=== PATIENT | male | born 1950 | race Caucasian/White ===

== ENCOUNTER 2018-04-01 05:48 | Inpatient (IN) ==
[2018-04-01 07:04] LABS: Basophils % 0.8 % (0.0-0.8); Eosinophils # 0.2 10*3/uL (0.0-0.87); Eosinophils % 3.1 % (0.00-10.9); Hematocrit 40.7 VOL% (42.0-52.0); Hemoglobin 13.4 GM/DL (14.0-18.0); Immature Granulocytes % 0.4 %; Immature Granulocytes Absolute 0.02 #; Lymphocytes # 1.3 10*3/uL (1.4-4.0); Lymphocytes % 24.4 % (21.2-54.2); Mean Corpuscular HGB Conc 32.9 GM/DL (32-36); Mean Corpuscular Hemoglobin 29 PG (27-34); Mean Corpuscular Volume 88.3 FL (87-102); Mean Platelet Volume 12.5 FL (9.6-12.0); Monocytes # 0.6 10*3/uL (0.11-0.8); Monocytes % 11.5 % (1.7-12.7); Neutrophils # 3.1 10*3/uL (1.4-7.4); Neutrophils % 59.8 % (38.7-73.9); Red Blood Count 4.61 MC/CUMM (3.8-5.5); Red Cell Distribution Width 16.9 % (9.3-17.3); White Blood Count 5.1 T/CUMM (4-12)
[2018-04-01 07:06] LABS: Platelet Count 95 T/CUMM (130-400)
[2018-04-01 07:17] LABS: Osmolality,Calculated 286.3 MOS/KG (273-304); Potassium 4.1 MMOL/L (3.5-5.1)
[2018-04-01 07:21] LABS: Anisocytosis 1+; Platelet Estimate Decreased
[2018-04-01 07:22] LABS: Poikilocytosis 1+
[2018-04-01] MEDS ORDERED: MIDAZOLAM 2 MG/2 ML VIAL ONE ×2 (07:52→08:38)
[2018-04-01] MEDS ORDERED: LIDOCAINE 1% 20 ML VIAL ONE (07:52)
[2018-04-01] MEDS ORDERED: fentaNYL 100 MCG/2 ML VIAL ONE ×2 (07:52→08:38)
[2018-04-01] MEDS ORDERED: HEPARIN/NACL 0.9% 2 UNITS/ML 500 ML IV ONE (07:52)
[2018-04-01] MEDS ORDERED: ISOPROTERENOL 1 MG/5 ML VIAL IV ONE (08:14)
[2018-04-01 09:08] LABS: INR 3.8; PT Patient Result 38.1 SECS; Partial Thromboplastin Time 47.8 SECS (0-40)
[2018-04-01] MEDS ORDERED: PHYTONADIONE 10 MG/1 ML AMP ONE (09:10)
[2018-04-01] MEDS ORDERED: SODIUM CHLORIDE 0.9% 1,000 ML IV PRN (09:24)
[2018-04-01] MEDS ORDERED: MORPHINE 4 MG/1 ML VIAL IV PRN (09:46)
[2018-04-01] MEDS ORDERED: oxyCODONE/ACETAMINOPHEN 5-325 MG TABLET PO PRN (09:46)
[2018-04-01] MEDS ORDERED: ONDANSETRON 4 MG/2 ML VIAL IV PRN (09:46)
[2018-04-01] MEDS ORDERED: ZALEPLON 5 MG CAPSULE PO PRN (09:46)
[2018-04-01] MEDS ORDERED: ACETAMINOPHEN 325 MG TABLET PO PRN (09:46)
[2018-04-01] MEDS ORDERED: DEXTROSE 50% 25 GM/50 ML VIAL IV PRN ×2 (09:49→12:26)
[2018-04-01] MEDS ORDERED: GLUCAGON 1 MG VIAL IM PRN ×2 (09:49→12:26)
[2018-04-01 11:43] LABS: Partial Thromboplastin Time 37.8 SECS (0-40)
[2018-04-01 11:48] LABS: INR 2.2
[2018-04-01 11:49] LABS: PT Patient Result 22.4 SECS
[2018-04-01] MEDS: SOTALOL 80 MG TABLET PO SCH ×2 (12:40→21:14)
[2018-04-01] MEDS: metFORMIN 500 MG TABLET PO SCH (16:51)
[2018-04-01] MEDS ORDERED: WARFARIN 5 MG TABLET PO SCH (18:00)
[2018-04-01] MEDS ORDERED: diphenhydrAMINE CAP 25 MG CAPSULE PO PRN (18:34)
[2018-04-01] MEDS ORDERED: MAGNESIUM HYDROXIDE SUSP 30 ML UDCUP PO PRN (18:35)
[2018-04-01] MEDS: MAGNESIUM CHLORIDE 64 MG TABLET PO SCH (21:14)
[2018-04-01] MEDS: OMEGA 3 ACID ETHYL ESTERS 1 GM CAPSULE PO SCH (21:14)
[2018-04-01] MEDS: ASCORBIC ACID 500 MG TABLET PO SCH (21:14)
[2018-04-02 04:25] LABS: Basophils % 0.4 % (0.0-0.8); Eosinophils # 0.2 10*3/uL (0.0-0.87); Eosinophils % 4.6 % (0.00-10.9); Hematocrit 37.8 VOL% (42.0-52.0); Hemoglobin 12.6 GM/DL (14.0-18.0); Immature Granulocytes % 0.4 %; Immature Granulocytes Absolute 0.02 #; Lymphocytes # 1.3 10*3/uL (1.4-4.0); Lymphocytes % 25.3 % (21.2-54.2); Mean Corpuscular HGB Conc 33.3 GM/DL (32-36); Mean Corpuscular Hemoglobin 29 PG (27-34); Mean Corpuscular Volume 87.1 FL (87-102); Mean Platelet Volume 11.2 FL (9.6-12.0); Monocytes # 0.6 10*3/uL (0.11-0.8); Neutrophils % 57.3 % (38.7-73.9); Red Blood Count 4.34 MC/CUMM (3.8-5.5); Red Cell Distribution Width 16.5 % (9.3-17.3); White Blood Count 5.2 T/CUMM (4-12)
[2018-04-02 04:27] LABS: Platelet Count 87 T/CUMM (130-400)
[2018-04-02 04:38] LABS: INR 1.5; PT Patient Result 15.4 SECS
[2018-04-02 04:47] LABS: Platelet Estimate Decreased
[2018-04-02 04:48] LABS: Ovalocytes 1+
[2018-04-02 05:08] LABS: Calcium 9.1 MG/DL (8.5-10.1); Osmolality,Calculated 278.7 MOS/KG (273-304); Potassium 4.2 MMOL/L (3.5-5.1)
[2018-04-02] MEDS: SOTALOL 80 MG TABLET PO SCH ×2 (09:41→21:13)
[2018-04-02] MEDS: ASCORBIC ACID 500 MG TABLET PO SCH ×2 (09:41→21:12)
[2018-04-02] MEDS: FUROSEMIDE 20 MG TABLET PO SCH (09:41)
[2018-04-02] MEDS: GLIMEPIRIDE 4 MG TABLET PO SCH (09:41)
[2018-04-02] MEDS: ASPIRIN EC 81 MG TABLET PO SCH (09:42)
[2018-04-02] MEDS: metFORMIN 500 MG TABLET PO SCH ×2 (09:42→17:25)
[2018-04-02] MEDS: LISINOPRIL 20 MG TABLET PO SCH (09:42)
[2018-04-02] MEDS: ENOXAPARIN 100 MG/ML SYRINGE SUBCUT SCH ×2 (11:52→23:01)
[2018-04-02] MEDS ORDERED: WARFARIN 7.5 MG TABLET PO ONE (18:00)
[2018-04-02] MEDS: OMEGA 3 ACID ETHYL ESTERS 1 GM CAPSULE PO SCH (21:12)
[2018-04-02] MEDS: MAGNESIUM CHLORIDE 64 MG TABLET PO SCH (21:13)
[2018-04-03 04:30] LABS: Basophils % 0.7 % (0.0-0.8); Eosinophils # 0.2 10*3/uL (0.0-0.87); Eosinophils % 4.3 % (0.00-10.9); Hematocrit 36.8 VOL% (42.0-52.0); Hemoglobin 12.1 GM/DL (14.0-18.0); Immature Granulocytes % 0.2 %; Immature Granulocytes Absolute 0.01 #; Lymphocytes # 1.7 10*3/uL (1.4-4.0); Mean Corpuscular HGB Conc 32.9 GM/DL (32-36); Mean Corpuscular Hemoglobin 28 PG (27-34); Mean Corpuscular Volume 86.4 FL (87-102); Mean Platelet Volume 11.2 FL (9.6-12.0); Monocytes # 0.6 10*3/uL (0.11-0.8); Neutrophils # 1.7 10*3/uL (1.4-7.4); Neutrophils % 40.8 % (38.7-73.9); Platelet Count 94 T/CUMM (130-400); Red Blood Count 4.26 MC/CUMM (3.8-5.5); Red Cell Distribution Width 16.5 % (9.3-17.3); White Blood Count 4.2 T/CUMM (4-12)
[2018-04-03 05:04] LABS: Osmolality,Calculated 279.5 MOS/KG (273-304); Potassium 4.1 MMOL/L (3.5-5.1)
[2018-04-03 05:07] LABS: Hypochromasia 1+; Ovalocytes Slight; Platelet Estimate Decreased
[2018-04-03] MEDS: metFORMIN 500 MG TABLET PO SCH (08:31)
[2018-04-03] MEDS: SOTALOL 80 MG TABLET PO SCH (08:31)
[2018-04-03] MEDS: ASCORBIC ACID 500 MG TABLET PO SCH (08:31)
[2018-04-03] MEDS: LISINOPRIL 20 MG TABLET PO SCH (08:32)
[2018-04-03] MEDS: ASPIRIN EC 81 MG TABLET PO SCH (08:32)
[2018-04-03] MEDS: GLIMEPIRIDE 4 MG TABLET PO SCH (08:32)
[2018-04-03] MEDS: FUROSEMIDE 20 MG TABLET PO SCH (08:32)
[2018-04-03 10:12] LABS: INR 1.3; PT Patient Result 13.5 SECS
[2018-04-03 10:51] LABS: Basophils % 0.5 % (0.0-0.8); Eosinophils # 0.2 10*3/uL (0.0-0.87); Eosinophils % 3.8 % (0.00-10.9); Hematocrit 37.3 VOL% (42.0-52.0); Hemoglobin 12.1 GM/DL (14.0-18.0); Immature Granulocytes % 0.3 %; Immature Granulocytes Absolute 0.01 #; Lymphocytes # 1.2 10*3/uL (1.4-4.0); Lymphocytes % 30.5 % (21.2-54.2); Mean Corpuscular HGB Conc 32.4 GM/DL (32-36); Mean Corpuscular Hemoglobin 29 PG (27-34); Mean Corpuscular Volume 89.2 FL (87-102); Mean Platelet Volume 12.7 FL (9.6-12.0); Monocytes # 0.6 10*3/uL (0.11-0.8); Neutrophils % 49.9 % (38.7-73.9); Red Blood Count 4.18 MC/CUMM (3.8-5.5); Red Cell Distribution Width 16.5 % (9.3-17.3)
[2018-04-03 10:57] LABS: Calcium 8.7 MG/DL (8.5-10.1); Osmolality,Calculated 283.5 MOS/KG (273-304); Potassium 4.6 MMOL/L (3.5-5.1)
[2018-04-03 11:16] LABS: Platelet Count 89 T/CUMM (130-400)
[2018-04-03 11:23] VITALS: BP 121/98
[2018-04-03 11:23] LABS: Anisocytosis 1+; Macrocytosis Slight; Platelet Estimate Decreased
[2018-04-03] MEDS ORDERED: WARFARIN 3 MG TABLET PO SCH (18:00)
== END 2018-04-03 13:30 | disposition home or self-care (01) | DRG 274 ==
LOC: N.CL 05:48 → N.2W 13:49 → N.TELES 15:35
PROVIDERS: ADMIT Internal Medicine Clinical Cardiac Electrophysiology; ATTEND Internal Medicine Clinical Cardiac Electrophysiology

== ENCOUNTER 2018-09-27 12:29 | Inpatient (IN) ==
[2018-09-27 13:05] LABS: Basophils % 0.3 % (0.0-0.8); Eosinophils # 0.1 10*3/uL (0.0-0.87); Eosinophils % 1.4 % (0.00-10.9); Hematocrit 33.4 VOL% (42.0-52.0); Hemoglobin 11.6 GM/DL (14.0-18.0); Immature Granulocytes % 0.4 %; Immature Granulocytes Absolute 0.03 #; Lymphocytes # 0.9 10*3/uL (1.4-4.0); Lymphocytes % 12.5 % (21.2-54.2); Mean Corpuscular HGB Conc 34.7 GM/DL (32-36); Mean Corpuscular Hemoglobin 36 PG (27-34); Mean Corpuscular Volume 104.4 FL (87-102); Mean Platelet Volume 11.8 FL (9.6-12.0); Monocytes # 0.2 10*3/uL (0.11-0.8); Monocytes % 3.3 % (1.7-12.7); NRBC # 0.02 10*3/uL; Neutrophils # 5.8 10*3/uL (1.4-7.4); Neutrophils % 82.1 % (38.7-73.9); Red Cell Distribution Width 19.9 % (9.3-17.3); White Blood Count 7.1 T/CUMM (4-12)
[2018-09-27 13:07] LABS: Platelet Count 82 T/CUMM (130-400)
[2018-09-27 13:16] LABS: INR 1.6; PT Patient Result 17.6 SECS; Partial Thromboplastin Time 31.7 SECS (0-40)
[2018-09-27 13:32] LABS: Albumin 3.9 G/DL (3.4-5.0); Bilirubin,Total 2.2 MG/DL (0.2-1.0); Calcium 8.9 MG/DL (8.5-10.1)
[2018-09-27] MEDS ORDERED: PANTOPRAZOLE 40 MG TABLET PO STA (13:39)
[2018-09-27] MEDS ORDERED: METOCLOPRAMIDE 10 MG TABLET PO STA (13:39)
[2018-09-27] MEDS ORDERED: ALUM/MAG/SIMETH/LIDO VISC 1:1 30 ML BOTTLE PO STA (13:39)
[2018-09-27] MEDS ORDERED: NITROGLYCERIN 2% OINT 1 INCH/GM PACK TOP STA (13:58)
[2018-09-27] MEDS ORDERED: ASPIRIN 325 MG TABLET PO STA (13:58)
[2018-09-27] MEDS ORDERED: BISACODYL 5 MG TABLET PO PRN (14:17)
[2018-09-27] MEDS ORDERED: ACETAMINOPHEN 325 MG TABLET PO PRN (14:17)
[2018-09-27] MEDS ORDERED: diphenhydrAMINE CAP 25 MG CAPSULE PO PRN (14:17)
[2018-09-27] MEDS ORDERED: ZALEPLON 5 MG CAPSULE PO PRN (14:17)
[2018-09-27] MEDS ORDERED: LACTULOSE 20 GM/30 ML UDCUP PO PRN (14:17)
[2018-09-27] MEDS ORDERED: ONDANSETRON 4 MG/2 ML VIAL IV PRN (14:17)
[2018-09-27] MEDS ORDERED: DOCUSATE SODIUM 100 MG CAPSULE PO PRN (14:17)
[2018-09-27] MEDS ORDERED: NITROGLYCERIN SL 0.4 MG TABLET SL PRN (14:20)
[2018-09-27 14:21] LABS: Troponin I 0.371 NG/ML (0.00-0.045)
[2018-09-27] MEDS ORDERED: GLUCAGON 1 MG VIAL IM PRN (15:04)
[2018-09-27] MEDS ORDERED: hydrALAZINE 20 MG/1 ML VIAL IV PRN (15:04)
[2018-09-27] MEDS ORDERED: DEXTROSE 50% 25 GM/50 ML SYRINGE IV PRN (15:04)
[2018-09-27] MEDS: ENOXAPARIN 40 MG/0.4 ML SYRINGE SUBCUT SCH (16:31)
[2018-09-27] MEDS: metFORMIN 500 MG TABLET PO SCH ×2 (16:31→16:55)
[2018-09-27] MEDS: SODIUM CHLORIDE 0.9% 1,000 ML IV SCH (16:32)
[2018-09-27] MEDS: INSULIN REGULAR 100 UNIT/ML SUBCUT SCH ×2 (16:54→20:56)
[2018-09-27] MEDS: ASCORBIC ACID 500 MG TABLET PO SCH (20:51)
[2018-09-27] MEDS: OMEGA 3 ACID ETHYL ESTERS 1 GM CAPSULE PO SCH (20:52)
[2018-09-27] MEDS: MAGNESIUM CHLORIDE 64 MG TABLET PO SCH (20:52)
[2018-09-27] MEDS: tiZANidine 4 MG TABLET PO SCH (20:55)
[2018-09-28 05:15] LABS: Basophils % 0.6 % (0.0-0.8); Eosinophils # 0.1 10*3/uL (0.0-0.87); Eosinophils % 3.5 % (0.00-10.9); Hematocrit 26.3 VOL% (42.0-52.0); Hemoglobin 9.1 GM/DL (14.0-18.0); Immature Granulocytes % 0.6 %; Immature Granulocytes Absolute 0.02 #; Lymphocytes % 27.4 % (21.2-54.2); Mean Corpuscular HGB Conc 34.6 GM/DL (32-36); Mean Corpuscular Hemoglobin 36 PG (27-34); Mean Corpuscular Volume 104.4 FL (87-102); Mean Platelet Volume 12.4 FL (9.6-12.0); Monocytes # 0.2 10*3/uL (0.11-0.8); Monocytes % 4.3 % (1.7-12.7); Neutrophils # 2.2 10*3/uL (1.4-7.4); Neutrophils % 63.6 % (38.7-73.9); Red Blood Count 2.52 MC/CUMM (3.8-5.5); Red Cell Distribution Width 19.9 % (9.3-17.3); White Blood Count 3.5 T/CUMM (4-12)
[2018-09-28] MEDS: ENOXAPARIN 40 MG/0.4 ML SYRINGE SUBCUT SCH ×2 (05:15→17:03)
[2018-09-28 05:24] LABS: Calcium 8.5 MG/DL (8.5-10.1); Osmolality,Calculated 281.4 MOS/KG (273-304); Potassium 4.2 MMOL/L (3.5-5.1)
[2018-09-28 05:30] LABS: Platelet Count 60 T/CUMM (130-400)
[2018-09-28 05:54] LABS: Hypochromasia 1+; Ovalocytes Slight; Platelet Estimate Decreased
[2018-09-28 05:55] LABS: Macrocytosis Slight
[2018-09-28] MEDS: INSULIN REGULAR 100 UNIT/ML SUBCUT SCH ×4 (07:29→21:45)
[2018-09-28] MEDS: metFORMIN 500 MG TABLET PO SCH ×2 (09:21→17:03)
[2018-09-28] MEDS: GLIMEPIRIDE 4 MG TABLET PO SCH (11:43)
[2018-09-28] MEDS: FUROSEMIDE 20 MG TABLET PO SCH (11:44)
[2018-09-28] MEDS: ATENOLOL 50 MG TABLET PO SCH (11:44)
[2018-09-28] MEDS: ASPIRIN EC 81 MG TABLET PO SCH (11:44)
[2018-09-28] MEDS: ASCORBIC ACID 500 MG TABLET PO SCH ×2 (11:44→21:38)
[2018-09-28] MEDS: LISINOPRIL 20 MG TABLET PO SCH (11:44)
[2018-09-28] MEDS: NITROGLYCERIN 2% OINT 1 INCH/GM PACK TOP SCH ×2 (12:27→17:04)
[2018-09-28] MEDS: SODIUM CHLORIDE 0.9% 1,000 ML IV SCH (14:52)
[2018-09-28] MEDS ORDERED: MAGNESIUM SULF RIDER 2 GM in PREMIX 1 EACH IV PRN (20:27)
[2018-09-28] MEDS ORDERED: diphenhydrAMINE CAP 25 MG CAPSULE PO ONE (20:27)
[2018-09-28] MEDS ORDERED: POTASSIUM CHLORIDE RIDER 10 MEQ in PREMIX 1 EACH IV PRN (20:27)
[2018-09-28] MEDS ORDERED: DIAZEPAM 5 MG TABLET PO ONE (20:27)
[2018-09-28] MEDS: tiZANidine 4 MG TABLET PO SCH (21:38)
[2018-09-28] MEDS: OMEGA 3 ACID ETHYL ESTERS 1 GM CAPSULE PO SCH (21:38)
[2018-09-28] MEDS: MAGNESIUM CHLORIDE 64 MG TABLET PO SCH (21:38)
[2018-09-29] MEDS: NITROGLYCERIN 2% OINT 1 INCH/GM PACK TOP SCH ×4 (00:26→18:04)
[2018-09-29 04:11] LABS: Basophils % 0.3 % (0.0-0.8); Eosinophils # 0.1 10*3/uL (0.0-0.87); Eosinophils % 4.1 % (0.00-10.9); Hematocrit 25.7 VOL% (42.0-52.0); Hemoglobin 8.8 GM/DL (14.0-18.0); Immature Granulocytes % 0.3 %; Immature Granulocytes Absolute 0.01 #; Lymphocytes # 1.1 10*3/uL (1.4-4.0); Lymphocytes % 36.4 % (21.2-54.2); Mean Corpuscular HGB Conc 34.2 GM/DL (32-36); Mean Corpuscular Hemoglobin 36 PG (27-34); Mean Platelet Volume 11.8 FL (9.6-12.0); Monocytes # 0.2 10*3/uL (0.11-0.8); Monocytes % 6.8 % (1.7-12.7); Neutrophils # 1.5 10*3/uL (1.4-7.4); Neutrophils % 52.1 % (38.7-73.9); Platelet Count 64 T/CUMM (130-400); Red Blood Count 2.47 MC/CUMM (3.8-5.5); Red Cell Distribution Width 19.8 % (9.3-17.3); White Blood Count 2.9 T/CUMM (4-12)
[2018-09-29 04:13] LABS: INR 1.4; PT Patient Result 14.9 SECS
[2018-09-29 04:25] LABS: Calcium 8.4 MG/DL (8.5-10.1); Osmolality,Calculated 281.5 MOS/KG (273-304)
[2018-09-29 04:51] LABS: Hypochromasia 1+; Macrocytosis Slight; Ovalocytes Slight; Platelet Estimate Decreased
[2018-09-29] MEDS: ASCORBIC ACID 500 MG TABLET PO SCH ×2 (09:51→21:19)
[2018-09-29] MEDS: ATENOLOL 50 MG TABLET PO SCH (09:51)
[2018-09-29] MEDS: LISINOPRIL 20 MG TABLET PO SCH (09:51)
[2018-09-29] MEDS: ASPIRIN EC 81 MG TABLET PO SCH (09:51)
[2018-09-29] MEDS: INSULIN REGULAR 100 UNIT/ML SUBCUT SCH ×4 (09:53→21:17)
[2018-09-29] MEDS: metFORMIN 500 MG TABLET PO SCH ×2 (09:53→17:22)
[2018-09-29] MEDS: GLIMEPIRIDE 4 MG TABLET PO SCH (10:08)
[2018-09-29] MEDS: FUROSEMIDE 20 MG TABLET PO SCH (10:10)
[2018-09-29] MEDS ORDERED: DIAZEPAM 5 MG TABLET ONE (12:20)
[2018-09-29] MEDS ORDERED: LIDOCAINE 1% 20 ML VIAL ONE (13:07)
[2018-09-29] MEDS ORDERED: HEPARIN/NACL 0.9% 2 UNITS/ML 1,000 ML IV ONE (13:07)
[2018-09-29] MEDS ORDERED: MIDAZOLAM 2 MG/2 ML VIAL ONE (13:33)
[2018-09-29] MEDS ORDERED: fentaNYL 100 MCG/2 ML VIAL ONE (13:33)
[2018-09-29] MEDS: SODIUM CHLORIDE 0.9% 1,000 ML IV SCH (15:43)
[2018-09-29] MEDS: OMEGA 3 ACID ETHYL ESTERS 1 GM CAPSULE PO SCH (21:17)
[2018-09-29] MEDS: tiZANidine 4 MG TABLET PO SCH (21:17)
[2018-09-29] MEDS: MAGNESIUM CHLORIDE 64 MG TABLET PO SCH (21:17)
[2018-09-30] MEDS: NITROGLYCERIN 2% OINT 1 INCH/GM PACK TOP SCH ×5 (00:15→23:45)
[2018-09-30 04:17] LABS: Basophils % 0.3 % (0.0-0.8); Eosinophils # 0.2 10*3/uL (0.0-0.87); Eosinophils % 4.1 % (0.00-10.9); Hematocrit 27.5 VOL% (42.0-52.0); Hemoglobin 9.5 GM/DL (14.0-18.0); Immature Granulocytes % 0.5 %; Immature Granulocytes Absolute 0.02 #; Lymphocytes # 1.3 10*3/uL (1.4-4.0); Lymphocytes % 35.1 % (21.2-54.2); Mean Corpuscular HGB Conc 34.5 GM/DL (32-36); Mean Corpuscular Hemoglobin 36 PG (27-34); Mean Corpuscular Volume 104.6 FL (87-102); Monocytes # 0.2 10*3/uL (0.11-0.8); Red Blood Count 2.63 MC/CUMM (3.8-5.5); Red Cell Distribution Width 19.5 % (9.3-17.3); White Blood Count 3.7 T/CUMM (4-12)
[2018-09-30 04:21] LABS: INR 1.2; PT Patient Result 13.2 SECS
[2018-09-30 04:28] LABS: Platelet Count 60 T/CUMM (130-400)
[2018-09-30 04:37] LABS: Hypochromasia 1+; Macrocytosis Slight; Ovalocytes Slight; Platelet Estimate Decreased
[2018-09-30 04:43] LABS: Calcium 8.6 MG/DL (8.5-10.1); Osmolality,Calculated 279.5 MOS/KG (273-304); Potassium 4.2 MMOL/L (3.5-5.1)
[2018-09-30] MEDS: INSULIN REGULAR 100 UNIT/ML SUBCUT SCH ×4 (08:44→21:29)
[2018-09-30] MEDS: ASCORBIC ACID 500 MG TABLET PO SCH ×2 (09:43→21:27)
[2018-09-30] MEDS: GLIMEPIRIDE 4 MG TABLET PO SCH (09:43)
[2018-09-30] MEDS: FUROSEMIDE 20 MG TABLET PO SCH (09:43)
[2018-09-30] MEDS: ASPIRIN EC 81 MG TABLET PO SCH (09:43)
[2018-09-30] MEDS: LISINOPRIL 20 MG TABLET PO SCH (09:43)
[2018-09-30] MEDS: ATENOLOL 50 MG TABLET PO SCH (09:43)
[2018-09-30] MEDS: metFORMIN 500 MG TABLET PO SCH ×3 (09:43→17:41)
[2018-09-30] MEDS: SODIUM CHLORIDE 0.9% 1,000 ML IV SCH ×2 (09:44→21:31)
[2018-09-30] MEDS: FLUTICASONE 50 MCG NASAL SPRAY 16 GM BOTTLE BOTH NARES SCH ×2 (12:25→21:29)
[2018-09-30] MEDS: FEXOFENADINE 180 MG TABLET PO SCH (12:25)
[2018-09-30] MEDS: FAMOTIDINE 20 MG TABLET PO SCH ×2 (12:25→21:27)
[2018-09-30] MEDS: MAGNESIUM CHLORIDE 64 MG TABLET PO SCH (21:27)
[2018-09-30] MEDS: OMEGA 3 ACID ETHYL ESTERS 1 GM CAPSULE PO SCH (21:27)
[2018-09-30] MEDS: tiZANidine 4 MG TABLET PO SCH (21:27)
[2018-10-01 03:42] LABS: Basophils % 0.4 % (0.0-0.8); Eosinophils # 0.2 10*3/uL (0.0-0.87); Eosinophils % 3.9 % (0.00-10.9); Hematocrit 27.8 VOL% (42.0-52.0); Hemoglobin 9.7 GM/DL (14.0-18.0); Immature Granulocytes % 0.9 %; Immature Granulocytes Absolute 0.04 #; Lymphocytes # 1.5 10*3/uL (1.4-4.0); Lymphocytes % 31.9 % (21.2-54.2); Mean Corpuscular HGB Conc 34.9 GM/DL (32-36); Mean Corpuscular Hemoglobin 36 PG (27-34); Mean Corpuscular Volume 103.3 FL (87-102); Mean Platelet Volume 13.5 FL (9.6-12.0); Monocytes # 0.3 10*3/uL (0.11-0.8); Monocytes % 6.8 % (1.7-12.7); NRBC # 0.02 10*3/uL; Neutrophils # 2.6 10*3/uL (1.4-7.4); Neutrophils % 56.1 % (38.7-73.9); Red Blood Count 2.69 MC/CUMM (3.8-5.5); Red Cell Distribution Width 19.8 % (9.3-17.3); White Blood Count 4.6 T/CUMM (4-12)
[2018-10-01 03:44] LABS: Platelet Count 83 T/CUMM (130-400)
[2018-10-01 03:58] LABS: Calcium 8.7 MG/DL (8.5-10.1); Osmolality,Calculated 279.7 MOS/KG (273-304); Potassium 4.3 MMOL/L (3.5-5.1)
[2018-10-01 04:00] LABS: INR 1.1; PT Patient Result 12.4 SECS
[2018-10-01 04:15] LABS: Hypochromasia 1+; Ovalocytes Slight; Platelet Estimate Decreased
[2018-10-01 04:16] LABS: Macrocytosis Slight
[2018-10-01] MEDS: NITROGLYCERIN 2% OINT 1 INCH/GM PACK TOP SCH ×3 (05:36→17:39)
[2018-10-01] MEDS: INSULIN REGULAR 100 UNIT/ML SUBCUT SCH ×4 (08:37→21:29)
[2018-10-01] MEDS: FEXOFENADINE 180 MG TABLET PO SCH (08:38)
[2018-10-01] MEDS: ASPIRIN EC 81 MG TABLET PO SCH (08:38)
[2018-10-01] MEDS: FUROSEMIDE 20 MG TABLET PO SCH (08:38)
[2018-10-01] MEDS: LISINOPRIL 20 MG TABLET PO SCH (08:38)
[2018-10-01] MEDS: FAMOTIDINE 20 MG TABLET PO SCH ×2 (08:38→21:29)
[2018-10-01] MEDS: ASCORBIC ACID 500 MG TABLET PO SCH ×2 (08:39→21:27)
[2018-10-01] MEDS: GLIMEPIRIDE 4 MG TABLET PO SCH (08:39)
[2018-10-01] MEDS: ATENOLOL 50 MG TABLET PO SCH (08:39)
[2018-10-01] MEDS: FLUTICASONE 50 MCG NASAL SPRAY 16 GM BOTTLE BOTH NARES SCH (08:45)
[2018-10-01] MEDS: metFORMIN 500 MG TABLET PO SCH ×2 (08:45→16:37)
[2018-10-01] MEDS ORDERED: MAGNESIUM SULF RIDER 2 GM in PREMIX 1 EACH IV PRN (10:30)
[2018-10-01] MEDS ORDERED: POTASSIUM CHLORIDE RIDER 10 MEQ in PREMIX 1 EACH IV PRN (10:30)
[2018-10-01] MEDS: CYANOCOBALAMIN 1000 MCG/1 ML VIAL IM SCH (12:56)
[2018-10-01] MEDS ORDERED: ALUM/MAG/SIMETH/LIDO VISC 1:1 30 ML BOTTLE PO PRN (16:09)
[2018-10-01] MEDS ORDERED: LORazepam 0.5 MG TABLET PO PRN (17:36)
[2018-10-01] MEDS ORDERED: WARFARIN 3 MG TABLET PO SCH (18:00)
[2018-10-01 18:51] LABS: HIT Interpretation Negative (Negative)
[2018-10-01] MEDS: OMEGA 3 ACID ETHYL ESTERS 1 GM CAPSULE PO SCH (21:27)
[2018-10-01] MEDS: MAGNESIUM CHLORIDE 64 MG TABLET PO SCH (21:28)
[2018-10-01] MEDS: tiZANidine 4 MG TABLET PO SCH (21:29)
[2018-10-02] MEDS: NITROGLYCERIN 2% OINT 1 INCH/GM PACK TOP SCH ×3 (00:09→13:18)
[2018-10-02 04:23] LABS: Basophils % 0.3 % (0.0-0.8); Eosinophils # 0.1 10*3/uL (0.0-0.87); Eosinophils % 3.7 % (0.00-10.9); Hematocrit 27.1 VOL% (42.0-52.0); Hemoglobin 9.4 GM/DL (14.0-18.0); Immature Granulocytes % 0.8 %; Immature Granulocytes Absolute 0.03 #; Lymphocytes # 1.4 10*3/uL (1.4-4.0); Lymphocytes % 36.3 % (21.2-54.2); Mean Corpuscular HGB Conc 34.7 GM/DL (32-36); Mean Corpuscular Hemoglobin 36 PG (27-34); Mean Corpuscular Volume 103.8 FL (87-102); Mean Platelet Volume 11.2 FL (9.6-12.0); Monocytes # 0.2 10*3/uL (0.11-0.8); Monocytes % 4.7 % (1.7-12.7); NRBC # 0.02 10*3/uL; Neutrophils # 2.1 10*3/uL (1.4-7.4); Neutrophils % 54.2 % (38.7-73.9); Red Blood Count 2.61 MC/CUMM (3.8-5.5); Red Cell Distribution Width 19.6 % (9.3-17.3); White Blood Count 3.8 T/CUMM (4-12)
[2018-10-02 04:32] LABS: Platelet Count 63 T/CUMM (130-400)
[2018-10-02 04:44] LABS: Calcium 8.7 MG/DL (8.5-10.1); Osmolality,Calculated 278.7 MOS/KG (273-304); Potassium 4.1 MMOL/L (3.5-5.1)
[2018-10-02] MEDS: SODIUM CHLORIDE 0.9% 1,000 ML IV SCH (06:36)
[2018-10-02] MEDS: INSULIN REGULAR 100 UNIT/ML SUBCUT SCH ×4 (08:04→21:07)
[2018-10-02] MEDS: CYANOCOBALAMIN 1000 MCG/1 ML VIAL IM SCH (09:30)
[2018-10-02] MEDS: ASCORBIC ACID 500 MG TABLET PO SCH ×2 (09:30→21:09)
[2018-10-02] MEDS: metFORMIN 500 MG TABLET PO SCH ×2 (09:30→16:16)
[2018-10-02] MEDS: ASPIRIN EC 81 MG TABLET PO SCH (09:31)
[2018-10-02] MEDS: FEXOFENADINE 180 MG TABLET PO SCH (09:31)
[2018-10-02] MEDS: FUROSEMIDE 20 MG TABLET PO SCH (09:31)
[2018-10-02] MEDS: GLIMEPIRIDE 4 MG TABLET PO SCH (09:31)
[2018-10-02] MEDS: ISOSORBIDE MONONITRATE 30 MG TABLET PO SCH (09:31)
[2018-10-02] MEDS: ATENOLOL 50 MG TABLET PO SCH (09:31)
[2018-10-02] MEDS: FAMOTIDINE 20 MG TABLET PO SCH ×2 (09:31→21:08)
[2018-10-02] MEDS: LISINOPRIL 20 MG TABLET PO SCH (09:31)
[2018-10-02] MEDS: FLUTICASONE 50 MCG NASAL SPRAY 16 GM BOTTLE BOTH NARES SCH (09:32)
[2018-10-02] MEDS ORDERED: diphenhydrAMINE CAP 25 MG CAPSULE PO ONE (10:30)
[2018-10-02] MEDS ORDERED: DIAZEPAM 5 MG TABLET PO ONE (10:30)
[2018-10-02] MEDS ORDERED: WARFARIN 3 MG TABLET PO SCH (18:00)
[2018-10-02] MEDS: MAGNESIUM CHLORIDE 64 MG TABLET PO SCH (21:08)
[2018-10-02] MEDS: OMEGA 3 ACID ETHYL ESTERS 1 GM CAPSULE PO SCH (21:09)
[2018-10-02] MEDS: tiZANidine 4 MG TABLET PO SCH (21:09)
[2018-10-03] MEDS: SODIUM CHLORIDE 0.9% 1,000 ML IV SCH (02:16)
[2018-10-03 05:16] LABS: Basophils % 0.4 % (0.0-0.8); Eosinophils # 0.1 10*3/uL (0.0-0.87); Eosinophils % 3.1 % (0.00-10.9); Hematocrit 26.8 VOL% (42.0-52.0); Hemoglobin 9.3 GM/DL (14.0-18.0); Immature Granulocytes Absolute 0.09 #; Lymphocytes # 1.2 10*3/uL (1.4-4.0); Lymphocytes % 27.4 % (21.2-54.2); Mean Corpuscular HGB Conc 34.7 GM/DL (32-36); Mean Corpuscular Hemoglobin 36 PG (27-34); Mean Corpuscular Volume 103.9 FL (87-102); Monocytes # 0.4 10*3/uL (0.11-0.8); Monocytes % 8.4 % (1.7-12.7); NRBC # 0.07 10*3/uL; Neutrophils # 2.7 10*3/uL (1.4-7.4); Neutrophils % 58.7 % (38.7-73.9); Platelet Count 69 T/CUMM (130-400); Red Blood Count 2.58 MC/CUMM (3.8-5.5); Red Cell Distribution Width 20.1 % (9.3-17.3); White Blood Count 4.5 T/CUMM (4-12)
[2018-10-03 05:17] LABS: INR 1.1
[2018-10-03 05:41] LABS: Calcium 8.8 MG/DL (8.5-10.1); Osmolality,Calculated 274.8 MOS/KG (273-304)
[2018-10-03 08:10] VITALS: BP 117/48
[2018-10-03] MEDS: LISINOPRIL 20 MG TABLET PO SCH (09:01)
[2018-10-03] MEDS: FUROSEMIDE 20 MG TABLET PO SCH (09:02)
[2018-10-03] MEDS: FAMOTIDINE 20 MG TABLET PO SCH (09:02)
[2018-10-03] MEDS: metFORMIN 500 MG TABLET PO SCH (09:02)
[2018-10-03] MEDS: INSULIN REGULAR 100 UNIT/ML SUBCUT SCH (09:02)
[2018-10-03] MEDS: GLIMEPIRIDE 4 MG TABLET PO SCH (09:02)
[2018-10-03] MEDS: ASPIRIN EC 81 MG TABLET PO SCH (09:02)
[2018-10-03] MEDS: ISOSORBIDE MONONITRATE 30 MG TABLET PO SCH (09:02)
[2018-10-03] MEDS: FEXOFENADINE 180 MG TABLET PO SCH (09:02)
[2018-10-03] MEDS: ATENOLOL 50 MG TABLET PO SCH (09:02)
[2018-10-03] MEDS: ASCORBIC ACID 500 MG TABLET PO SCH (09:02)
[2018-10-03] MEDS: FLUTICASONE 50 MCG NASAL SPRAY 16 GM BOTTLE BOTH NARES SCH (09:12)
[2018-10-03] MEDS: CYANOCOBALAMIN 1000 MCG/1 ML VIAL IM SCH (09:12)
== END 2018-10-03 10:48 | disposition home or self-care (01) | DRG 311 ==
LOC: N.ED 12:29 → N.EDINP 14:17 → N.TELES 15:26
PROVIDERS: ADMIT Internal Medicine Cardiovascular Disease; ATTEND Internal Medicine Cardiovascular Disease

== ENCOUNTER 2018-10-06 02:25 | Inpatient (IN) ==
[2018-10-06 04:27] LABS: Basophils % 0.4 % (0.0-0.8); Eosinophils # 0.1 10*3/uL (0.0-0.87); Eosinophils % 1.6 % (0.00-10.9); Hemoglobin 10.7 GM/DL (14.0-18.0); Immature Granulocytes % 1.6 %; Immature Granulocytes Absolute 0.09 #; Lymphocytes # 1.2 10*3/uL (1.4-4.0); Lymphocytes % 21.1 % (21.2-54.2); Mean Corpuscular HGB Conc 33.4 GM/DL (32-36); Mean Corpuscular Hemoglobin 36 PG (27-34); Mean Corpuscular Volume 108.5 FL (87-102); Mean Platelet Volume 13.6 FL (9.6-12.0); Monocytes # 0.5 10*3/uL (0.11-0.8); Monocytes % 9.1 % (1.7-12.7); NRBC # 0.06 10*3/uL; Neutrophils # 3.8 10*3/uL (1.4-7.4); Neutrophils % 66.2 % (38.7-73.9); Red Blood Count 2.95 MC/CUMM (3.8-5.5); Red Cell Distribution Width 20.7 % (9.3-17.3); White Blood Count 5.7 T/CUMM (4-12)
[2018-10-06 04:31] LABS: Platelet Count 60 T/CUMM (130-400)
[2018-10-06 04:39] LABS: Albumin 3.8 G/DL (3.4-5.0); Bilirubin,Total 0.8 MG/DL (0.2-1.0); Calcium 9.2 MG/DL (8.5-10.1); Osmolality,Calculated 288.3 MOS/KG (273-304); Potassium 4.2 MMOL/L (3.5-5.1); Total Protein 6.9 G/DL (6.4-8.3)
[2018-10-06 05:02] LABS: Hypochromasia 1+
[2018-10-06 05:03] LABS: Macrocytosis Slight; Platelet Estimate Decreased; Polychromasia Slight
[2018-10-06] MEDS ORDERED: NITROGLYCERIN 2% OINT 1 INCH/GM PACK TOP STA (05:10)
[2018-10-06 06:52] LABS: INR 1.3; PT Patient Result 14.2 SECS; Partial Thromboplastin Time 28.9 SECS (0-40)
[2018-10-06] MEDS ORDERED: NITROGLYCERIN SL 0.4 MG TABLET SL PRN (10:16)
[2018-10-06] MEDS: LISINOPRIL 20 MG TABLET PO SCH (11:14)
[2018-10-06] MEDS: RANOLAZINE 500 MG TABLET PO SCH ×2 (11:14→22:04)
[2018-10-06] MEDS: FEXOFENADINE 180 MG TABLET PO SCH (11:14)
[2018-10-06] MEDS: FAMOTIDINE 20 MG TABLET PO SCH ×2 (11:14→22:04)
[2018-10-06] MEDS: ISOSORBIDE MONONITRATE 30 MG TABLET PO SCH (11:15)
[2018-10-06] MEDS: CYANOCOBALAMIN 1000 MCG/1 ML VIAL IM SCH (11:15)
[2018-10-06] MEDS: ATENOLOL 50 MG TABLET PO SCH (11:15)
[2018-10-06] MEDS: GLIMEPIRIDE 4 MG TABLET PO SCH (11:15)
[2018-10-06] MEDS: FUROSEMIDE 20 MG TABLET PO SCH (11:15)
[2018-10-06] MEDS: FLUTICASONE 50 MCG NASAL SPRAY 16 GM BOTTLE BOTH NARES SCH (12:01)
[2018-10-06] MEDS: metFORMIN 500 MG TABLET PO SCH (17:55)
[2018-10-06] MEDS ORDERED: WARFARIN 3 MG TABLET PO SCH (18:00)
[2018-10-06] MEDS: ASCORBIC ACID 500 MG TABLET PO SCH (22:03)
[2018-10-06] MEDS: OMEGA 3 ACID ETHYL ESTERS 1 GM CAPSULE PO SCH (22:03)
[2018-10-06] MEDS: MAGNESIUM CHLORIDE 64 MG TABLET PO SCH (22:04)
[2018-10-06] MEDS: tiZANidine 4 MG TABLET PO SCH (22:04)
[2018-10-07 04:29] LABS: Basophils % 0.2 % (0.0-0.8); Eosinophils # 0.2 10*3/uL (0.0-0.87); Eosinophils % 3.6 % (0.00-10.9); Hematocrit 29.2 VOL% (42.0-52.0); Hemoglobin 9.7 GM/DL (14.0-18.0); Immature Granulocytes % 0.7 %; Immature Granulocytes Absolute 0.03 #; Lymphocytes # 1.3 10*3/uL (1.4-4.0); Mean Corpuscular HGB Conc 33.2 GM/DL (32-36); Mean Corpuscular Hemoglobin 35 PG (27-34); Mean Corpuscular Volume 106.6 FL (87-102); Mean Platelet Volume 11.7 FL (9.6-12.0); Monocytes # 0.5 10*3/uL (0.11-0.8); Monocytes % 12.1 % (1.7-12.7); NRBC # 0.04 10*3/uL; Neutrophils # 2.1 10*3/uL (1.4-7.4); Neutrophils % 51.4 % (38.7-73.9); Platelet Count 57 T/CUMM (130-400); Red Blood Count 2.74 MC/CUMM (3.8-5.5); Red Cell Distribution Width 19.9 % (9.3-17.3); White Blood Count 4.1 T/CUMM (4-12)
[2018-10-07 04:53] LABS: Eosinophils 4 % (0-10); Hypochromasia 1+; Lymphocytes 37 % (20-55); Platelet Estimate Decreased; Segmented Neutrophils 50 % (50-85); Total Cells Counted 100
[2018-10-07 04:54] LABS: Calcium 8.8 MG/DL (8.5-10.1); Macrocytosis Slight; Osmolality,Calculated 281.5 MOS/KG (273-304); Polychromasia Slight; Potassium 4.3 MMOL/L (3.5-5.1)
[2018-10-07] MEDS: metFORMIN 500 MG TABLET PO SCH ×2 (08:43→17:13)
[2018-10-07] MEDS: GLIMEPIRIDE 4 MG TABLET PO SCH (08:44)
[2018-10-07] MEDS: FAMOTIDINE 20 MG TABLET PO SCH ×2 (08:44→21:34)
[2018-10-07] MEDS: LISINOPRIL 20 MG TABLET PO SCH (08:44)
[2018-10-07] MEDS: FEXOFENADINE 180 MG TABLET PO SCH (08:44)
[2018-10-07] MEDS: RANOLAZINE 500 MG TABLET PO SCH ×2 (08:44→21:34)
[2018-10-07] MEDS: ASPIRIN EC 81 MG TABLET PO SCH (08:44)
[2018-10-07] MEDS: CYANOCOBALAMIN 1000 MCG/1 ML VIAL IM SCH (08:45)
[2018-10-07] MEDS: ATENOLOL 50 MG TABLET PO SCH (08:45)
[2018-10-07] MEDS: ISOSORBIDE MONONITRATE 30 MG TABLET PO SCH (08:45)
[2018-10-07] MEDS: FUROSEMIDE 20 MG TABLET PO SCH (08:45)
[2018-10-07] MEDS: ASCORBIC ACID 500 MG TABLET PO SCH ×2 (08:45→21:34)
[2018-10-07] MEDS: FLUTICASONE 50 MCG NASAL SPRAY 16 GM BOTTLE BOTH NARES SCH (10:11)
[2018-10-07] MEDS ORDERED: WARFARIN 3 MG TABLET PO SCH (18:00)
[2018-10-07] MEDS: tiZANidine 4 MG TABLET PO SCH (21:34)
[2018-10-07] MEDS: OMEGA 3 ACID ETHYL ESTERS 1 GM CAPSULE PO SCH (21:34)
[2018-10-07] MEDS: MAGNESIUM CHLORIDE 64 MG TABLET PO SCH (21:34)
[2018-10-08 05:14] LABS: Basophils % 0.2 % (0.0-0.8); Eosinophils # 0.2 10*3/uL (0.0-0.87); Eosinophils % 4.1 % (0.00-10.9); Hematocrit 32.2 VOL% (42.0-52.0); Hemoglobin 10.6 GM/DL (14.0-18.0); Immature Granulocytes % 0.5 %; Immature Granulocytes Absolute 0.02 #; Lymphocytes # 1.5 10*3/uL (1.4-4.0); Lymphocytes % 35.7 % (21.2-54.2); Mean Corpuscular HGB Conc 32.9 GM/DL (32-36); Mean Corpuscular Hemoglobin 34 PG (27-34); Mean Corpuscular Volume 104.5 FL (87-102); Mean Platelet Volume 11.1 FL (9.6-12.0); Monocytes # 0.5 10*3/uL (0.11-0.8); Monocytes % 11.9 % (1.7-12.7); Neutrophils % 47.6 % (38.7-73.9); Platelet Count 62 T/CUMM (130-400); Red Blood Count 3.08 MC/CUMM (3.8-5.5); Red Cell Distribution Width 18.7 % (9.3-17.3); White Blood Count 4.1 T/CUMM (4-12)
[2018-10-08 05:22] LABS: INR 1.6; PT Patient Result 16.9 SECS; Partial Thromboplastin Time 31.2 SECS (0-40)
[2018-10-08 05:41] LABS: Calcium 8.9 MG/DL (8.5-10.1); Osmolality,Calculated 281.7 MOS/KG (273-304); Potassium 4.2 MMOL/L (3.5-5.1)
[2018-10-08] MEDS: FEXOFENADINE 180 MG TABLET PO SCH (08:55)
[2018-10-08] MEDS: RANOLAZINE 500 MG TABLET PO SCH ×2 (08:55→20:44)
[2018-10-08] MEDS: ASCORBIC ACID 500 MG TABLET PO SCH ×2 (08:56→20:44)
[2018-10-08] MEDS: ASPIRIN EC 81 MG TABLET PO SCH (08:56)
[2018-10-08] MEDS: GLIMEPIRIDE 4 MG TABLET PO SCH (08:56)
[2018-10-08] MEDS: metFORMIN 500 MG TABLET PO SCH ×2 (08:56→16:04)
[2018-10-08] MEDS: LISINOPRIL 20 MG TABLET PO SCH (08:56)
[2018-10-08] MEDS: ISOSORBIDE MONONITRATE 30 MG TABLET PO SCH (08:57)
[2018-10-08] MEDS: ATENOLOL 50 MG TABLET PO SCH (08:57)
[2018-10-08] MEDS: CYANOCOBALAMIN 1000 MCG/1 ML VIAL IM SCH (08:57)
[2018-10-08] MEDS: FUROSEMIDE 20 MG TABLET PO SCH (08:57)
[2018-10-08] MEDS: FAMOTIDINE 20 MG TABLET PO SCH ×2 (08:57→20:44)
[2018-10-08] MEDS: FLUTICASONE 50 MCG NASAL SPRAY 16 GM BOTTLE BOTH NARES SCH (10:03)
[2018-10-08] MEDS: OMEGA 3 ACID ETHYL ESTERS 1 GM CAPSULE PO SCH (20:44)
[2018-10-08] MEDS: MAGNESIUM CHLORIDE 64 MG TABLET PO SCH (20:44)
[2018-10-08] MEDS: tiZANidine 4 MG TABLET PO SCH (20:45)
[2018-10-09 04:41] LABS: Basophils % 0.2 % (0.0-0.8); Eosinophils # 0.2 10*3/uL (0.0-0.87); Eosinophils % 5.2 % (0.00-10.9); Hematocrit 33.3 VOL% (42.0-52.0); Hemoglobin 10.9 GM/DL (14.0-18.0); Immature Granulocytes % 0.5 %; Immature Granulocytes Absolute 0.02 #; Lymphocytes # 1.4 10*3/uL (1.4-4.0); Lymphocytes % 33.5 % (21.2-54.2); Mean Corpuscular HGB Conc 32.7 GM/DL (32-36); Mean Corpuscular Hemoglobin 34 PG (27-34); Mean Corpuscular Volume 103.1 FL (87-102); Mean Platelet Volume 12.4 FL (9.6-12.0); Monocytes # 0.5 10*3/uL (0.11-0.8); Monocytes % 12.4 % (1.7-12.7); Neutrophils % 48.2 % (38.7-73.9); Platelet Count 82 T/CUMM (130-400); Red Blood Count 3.23 MC/CUMM (3.8-5.5); Red Cell Distribution Width 17.9 % (9.3-17.3); White Blood Count 4.2 T/CUMM (4-12)
[2018-10-09 04:51] LABS: INR 1.5; PT Patient Result 15.8 SECS; Partial Thromboplastin Time 30.7 SECS (0-40)
[2018-10-09 04:57] LABS: Osmolality,Calculated 279.7 MOS/KG (273-304); Potassium 4.3 MMOL/L (3.5-5.1)
[2018-10-09 05:07] LABS: Eosinophils 9 % (0-10); Hypochromasia 1+; Lymphocytes 27 % (20-55); Ovalocytes Slight; Platelet Estimate Decreased; Segmented Neutrophils 52 % (50-85); Total Cells Counted 100
[2018-10-09] MEDS: ASCORBIC ACID 500 MG TABLET PO SCH ×2 (08:18→21:47)
[2018-10-09] MEDS: FEXOFENADINE 180 MG TABLET PO SCH (08:18)
[2018-10-09] MEDS: ISOSORBIDE MONONITRATE 30 MG TABLET PO SCH (08:19)
[2018-10-09] MEDS: LISINOPRIL 20 MG TABLET PO SCH (08:19)
[2018-10-09] MEDS: ATENOLOL 50 MG TABLET PO SCH (08:19)
[2018-10-09] MEDS: FAMOTIDINE 20 MG TABLET PO SCH ×2 (08:20→21:47)
[2018-10-09] MEDS: GLIMEPIRIDE 4 MG TABLET PO SCH (08:20)
[2018-10-09] MEDS: FUROSEMIDE 20 MG TABLET PO SCH (08:20)
[2018-10-09] MEDS: RANOLAZINE 500 MG TABLET PO SCH ×2 (08:20→21:47)
[2018-10-09] MEDS: metFORMIN 500 MG TABLET PO SCH ×2 (08:26→17:19)
[2018-10-09] MEDS: ASPIRIN EC 81 MG TABLET PO SCH (08:29)
[2018-10-09] MEDS: FLUTICASONE 50 MCG NASAL SPRAY 16 GM BOTTLE BOTH NARES SCH (08:30)
[2018-10-09] MEDS: MAGNESIUM CHLORIDE 64 MG TABLET PO SCH (21:47)
[2018-10-09] MEDS: OMEGA 3 ACID ETHYL ESTERS 1 GM CAPSULE PO SCH (21:48)
[2018-10-09] MEDS: tiZANidine 4 MG TABLET PO SCH (21:48)
[2018-10-10 04:53] LABS: Basophils % 0.4 % (0.0-0.8); Eosinophils # 0.3 10*3/uL (0.0-0.87); Eosinophils % 4.6 % (0.00-10.9); Hematocrit 35.7 VOL% (42.0-52.0); Hemoglobin 11.6 GM/DL (14.0-18.0); Immature Granulocytes % 0.4 %; Immature Granulocytes Absolute 0.02 #; Lymphocytes # 1.6 10*3/uL (1.4-4.0); Lymphocytes % 29.7 % (21.2-54.2); Mean Corpuscular HGB Conc 32.5 GM/DL (32-36); Mean Corpuscular Hemoglobin 34 PG (27-34); Mean Corpuscular Volume 103.2 FL (87-102); Mean Platelet Volume 12.2 FL (9.6-12.0); Monocytes # 0.6 10*3/uL (0.11-0.8); Neutrophils % 53.9 % (38.7-73.9); Platelet Count 105 T/CUMM (130-400); Red Blood Count 3.46 MC/CUMM (3.8-5.5); Red Cell Distribution Width 17.8 % (9.3-17.3); White Blood Count 5.5 T/CUMM (4-12)
[2018-10-10 05:01] LABS: INR 1.3; PT Patient Result 13.7 SECS; Partial Thromboplastin Time 29.6 SECS (0-40)
[2018-10-10 05:22] LABS: Osmolality,Calculated 279.7 MOS/KG (273-304); Potassium 4.7 MMOL/L (3.5-5.1)
[2018-10-10] MEDS ORDERED: POTASSIUM CHLORIDE RIDER 10 MEQ in PREMIX 1 EACH IV PRN (06:00)
[2018-10-10] MEDS ORDERED: MAGNESIUM SULF RIDER 2 GM in PREMIX 1 EACH IV PRN (06:00)
[2018-10-10] MEDS: SODIUM CHLORIDE 0.45% 1,000 ML IV SCH ×2 (09:01→17:35)
[2018-10-10] MEDS: RANOLAZINE 500 MG TABLET PO SCH (09:02)
[2018-10-10] MEDS: metFORMIN 500 MG TABLET PO SCH (09:02)
[2018-10-10] MEDS: ASPIRIN EC 81 MG TABLET PO SCH (09:02)
[2018-10-10] MEDS: GLIMEPIRIDE 4 MG TABLET PO SCH (09:02)
[2018-10-10] MEDS: FEXOFENADINE 180 MG TABLET PO SCH (09:02)
[2018-10-10] MEDS: LISINOPRIL 20 MG TABLET PO SCH (09:02)
[2018-10-10] MEDS: FUROSEMIDE 20 MG TABLET PO SCH (09:03)
[2018-10-10] MEDS: ISOSORBIDE MONONITRATE 30 MG TABLET PO SCH (09:03)
[2018-10-10] MEDS: ASCORBIC ACID 500 MG TABLET PO SCH ×2 (09:03→21:06)
[2018-10-10] MEDS: FAMOTIDINE 20 MG TABLET PO SCH ×2 (09:03→21:06)
[2018-10-10] MEDS: FLUTICASONE 50 MCG NASAL SPRAY 16 GM BOTTLE BOTH NARES SCH (09:09)
[2018-10-10] MEDS: ATENOLOL 50 MG TABLET PO SCH (09:09)
[2018-10-10] MEDS ORDERED: HEPARIN/NACL 0.9% 2 UNITS/ML 500 ML IV ONE ×2 (11:15→11:23)
[2018-10-10] MEDS ORDERED: LIDOCAINE 1% 20 ML VIAL ONE (11:15)
[2018-10-10] MEDS ORDERED: DIAZEPAM 5 MG TABLET PO ONE (12:00)
[2018-10-10] MEDS ORDERED: diphenhydrAMINE CAP 25 MG CAPSULE PO ONE (12:00)
[2018-10-10] MEDS ORDERED: MIDAZOLAM 2 MG/2 ML VIAL ONE ×2 (12:57→14:03)
[2018-10-10] MEDS ORDERED: fentaNYL 100 MCG/2 ML VIAL ONE (12:57)
[2018-10-10] MEDS ORDERED: SODIUM BICARBONATE 2.4 MEQ/5 ML VIAL ONE (12:58)
[2018-10-10] MEDS ORDERED: BIVALIRUDIN 250 MG VIAL IV ONE (13:29)
[2018-10-10] MEDS ORDERED: CLOPIDOGREL 300 MG TABLET ONE (13:58)
[2018-10-10] MEDS ORDERED: DEXTROSE 50% 25 GM/50 ML SYRINGE IV PRN (14:25)
[2018-10-10] MEDS ORDERED: GLUCAGON 1 MG VIAL IM PRN (14:25)
[2018-10-10] MEDS ORDERED: MORPHINE 4 MG/1 ML VIAL IV PRN (16:08)
[2018-10-10] MEDS ORDERED: ACETAMINOPHEN/CODEINE 300-30 MG TABLET PO PRN (16:08)
[2018-10-10] MEDS ORDERED: ONDANSETRON 4 MG/2 ML VIAL IV PRN (16:08)
[2018-10-10] MEDS ORDERED: ACETAMINOPHEN 325 MG TABLET PO PRN (16:08)
[2018-10-10] MEDS ORDERED: WARFARIN 4 MG TABLET PO SCH (18:00)
[2018-10-10] MEDS: MAGNESIUM CHLORIDE 64 MG TABLET PO SCH (21:05)
[2018-10-10] MEDS: tiZANidine 4 MG TABLET PO SCH (21:06)
[2018-10-10] MEDS: OMEGA 3 ACID ETHYL ESTERS 1 GM CAPSULE PO SCH (21:06)
[2018-10-11] MEDS: SODIUM CHLORIDE 0.45% 1,000 ML IV SCH ×3 (00:36→08:51)
[2018-10-11 05:28] LABS: Basophils % 0.3 % (0.0-0.8); Eosinophils # 0.3 10*3/uL (0.0-0.87); Hematocrit 33.8 VOL% (42.0-52.0); Hemoglobin 11.1 GM/DL (14.0-18.0); Immature Granulocytes % 0.8 %; Immature Granulocytes Absolute 0.05 #; Lymphocytes # 1.1 10*3/uL (1.4-4.0); Lymphocytes % 17.6 % (21.2-54.2); Mean Corpuscular HGB Conc 32.8 GM/DL (32-36); Mean Corpuscular Hemoglobin 34 PG (27-34); Mean Corpuscular Volume 102.7 FL (87-102); Mean Platelet Volume 11.6 FL (9.6-12.0); Monocytes # 0.6 10*3/uL (0.11-0.8); Monocytes % 9.4 % (1.7-12.7); Neutrophils # 4.2 10*3/uL (1.4-7.4); Neutrophils % 67.9 % (38.7-73.9); Platelet Count 116 T/CUMM (130-400); Red Blood Count 3.29 MC/CUMM (3.8-5.5); Red Cell Distribution Width 17.7 % (9.3-17.3); White Blood Count 6.3 T/CUMM (4-12)
[2018-10-11 05:48] LABS: Calcium 8.8 MG/DL (8.5-10.1); Potassium 4.3 MMOL/L (3.5-5.1)
[2018-10-11] MEDS: ASPIRIN EC 81 MG TABLET PO SCH (08:49)
[2018-10-11] MEDS: FAMOTIDINE 20 MG TABLET PO SCH (08:49)
[2018-10-11] MEDS: FEXOFENADINE 180 MG TABLET PO SCH (08:49)
[2018-10-11] MEDS: FUROSEMIDE 20 MG TABLET PO SCH (08:49)
[2018-10-11] MEDS: ASCORBIC ACID 500 MG TABLET PO SCH (08:50)
[2018-10-11] MEDS: GLIMEPIRIDE 4 MG TABLET PO SCH (08:50)
[2018-10-11] MEDS: ISOSORBIDE MONONITRATE 30 MG TABLET PO SCH (08:50)
[2018-10-11] MEDS: LISINOPRIL 20 MG TABLET PO SCH (08:50)
[2018-10-11] MEDS: FLUTICASONE 50 MCG NASAL SPRAY 16 GM BOTTLE BOTH NARES SCH (08:51)
[2018-10-11] MEDS: ATENOLOL 50 MG TABLET PO SCH (08:51)
[2018-10-11] MEDS ORDERED: CLOPIDOGREL 75 MG TABLET PO SCH (09:00)
[2018-10-11 09:07] VITALS: BP 126/83
[2018-10-15] MEDS ORDERED: CYANOCOBALAMIN 1000 MCG/1 ML VIAL IM SCH (09:00)
== END 2018-10-11 13:32 | disposition home or self-care (01) | DRG 247 ==
LOC: N.ED 02:25 → N.EDINP 05:10 → N.TELEN 06:10
PROVIDERS: ADMIT Internal Medicine Cardiovascular Disease; ATTEND Internal Medicine Cardiovascular Disease
PROC: CLCCHCL (ICD-10-PCS; 2018-10-10 13:45)